=== PATIENT | male | born 1990 | race Caucasian/White ===

== ENCOUNTER 2018-02-26 20:47 | Emergency (ER) | payer SELFPAY ==
[~2018-02-26] VITALS: Ht 182.9 cm; Wt 104.3 kg
[~2018-02-26 20:47] MED LIST: CEPHALEXIN500 MG PO; NORCO 5-325 TA1 EACH PO
== END 2018-02-27 01:53 | disposition home or self-care (01) ==
LOC: ED 20:47
DX: R11.2 Nausea with vomiting, unspecified (principal); F12.99 Cannabis use, unspecified with unspecified cannabis-induced disorder; Z88.0 Allergy status to penicillin
CPT/HCPCS: 74177; 80053; 81001; 83690; 85025; 87081; 87880; 96361; 96372; 96374; 96376; 99284; J2405; J3486; J7030; Q9967

== ENCOUNTER 2021-04-15 16:39 | Emergency (ER) | payer OTHER ==
[~2021-04-15] VITALS: Ht 182.9 cm; Wt 108.9 kg
[2021-04-15] MEDS ORDERED: PROMETHAZINE HC25 M1 PO (19:47)
[2021-04-15] MEDS ORDERED: ONDANSETRON ODT8 MG PO (19:47)
== END 2021-04-15 20:13 | disposition home or self-care (01) ==
LOC: ED 16:39
DX: K52.9 Noninfective gastroenteritis and colitis, unspecified (principal); N17.9 Acute kidney failure, unspecified; Z88.0 Allergy status to penicillin
CPT/HCPCS: 80053; 81001; 83735; 85025; 96374; 96375; 99284-25; A9270; J1200; J1790; J2405; J7030

== ENCOUNTER 2023-11-28 17:09 | Emergency (ER) | payer OTHER ==
[~2023-11-28] VITALS: Ht 182.9 cm; Wt 106.2 kg
[~2023-11-28 17:09] MED LIST changes: +ONDANSETRON ODT8 MG PO; +PROMETHAZINE HC25 M1 PO
[2023-11-28 18:30] LABS: BILIRUBIN, URINE POSITIVE (negative); BLOOD/HGB, URINE TRACE-I (Negative); KETONE, URINE SMALL (Negative); LEUK ESTERASE, URINE NEGATIVE (negative); NITRITE, URINE NEGATIVE (negative); PH, URINE 5.5 (5-7)
[2023-11-28] MEDS ORDERED: SODIUM CHLORIDE 0.9% 500 ML IV ONE (18:30)
[2023-11-28] MEDS ORDERED: ondansetron HCL 4 MG/2 ML VIAL IV ONE (18:30)
[2023-11-28 18:36] LABS: BACTERIA, URINE NONE SEEN /hpf (negative); COLLECTION TYPE, URINE CLEAN CATCH; CRYSTALS, URINE NONE SEEN (0-1+); EPITHELIAL CELLS, URINE SQUAMOUS 1+ /lpf (0-1+); RED BLOOD CELLS, URINE 0-1 /hpf (0-5); REFLEX CULTURE, URINE No (No); WHITE BLOOD CELLS, URINE 0-1 /HPF (0-5)
[2023-11-28 18:43] LABS: HEMOGLOBIN 15.8 g/dL (12.0-18.0); MCH 26.6 (27-36)
[2023-11-28 18:45] LABS: BASOPHILS 0.2 % (0-2); HEMATOCRIT 47.1 % (35.0-50.0); LYMPHOCYTES 5.8 % (24-44); MCHC 33.4 g/dl (30-36); MCV 79.6 fl (81-99); MONOCYTES 4.8 % (0-12); NEUTROPHILS 89.2 % (39-80); PLATELET COUNT 283 K/uL (140-440); RBC 5.92 M/ul (4.3-5.7)
[2023-11-28 18:55] LABS: ALBUMIN 4.8 g/dL (3.4-5.0); ALBUMIN/GLOBULIN RATIO 0.87 (1.1-2.4); ANION GAP 21.4 (7-21); BILIRUBIN, TOTAL 0.7 ng/dL (0.2-1.0); BUN/CREATININE RATIO 11.52 (6.0-28.6); CALCIUM 10.1 mg/dL (8.5-10.1); CREATININE, SERUM 2.17 mg/dL (0.70-1.30); MAGNESIUM 2.2 mg/dL (1.8-2.4); POTASSIUM 3.4 mmol/L (3.5-5.1); PROTEIN, TOTAL 10.3 g/dL (6.4-8.2)
[2023-11-28] MEDS ORDERED: FAMOTIDINE 20 MG/ 2 ML VIAL IV ONE (19:15)
[2023-11-28] MEDS ORDERED: LACTATED RINGER'S 1,000 ML IV ONE (19:15)
[2023-11-28] MEDS ORDERED: ONDANSETRON 4 MG HOME.PACK SL ONE (19:30)
[2023-11-28] MEDS ORDERED: ONDANSETRON HCL4 MG PO (19:33)
[2023-11-28 20:37] VITALS: BP 128/72
== END 2023-11-28 20:40 | disposition home or self-care (01) ==
LOC: ED 17:09
PROVIDERS: Emergency Medicine
DX: R11.2 Nausea with vomiting, unspecified (principal); E86.0 Dehydration; Z88.0 Allergy status to penicillin
CPT/HCPCS: 36415; 80053; 81001; 83735; 85025; A9270; J2405; J7040; J7121

== ENCOUNTER 2024-09-26 14:17 | Emergency (ER) | payer OTHER ==
[~2024-09-26] VITALS: Ht 182.9 cm; Wt 101.2 kg
[~2024-09-26 14:17] MED LIST changes: +ONDANSETRON HCL4 MG PO
[2024-09-26] MEDS ORDERED: DOXYCYCLINE HY100 MG PO (17:56)
[2024-09-26] MEDS ORDERED: FLONASE ALLERG9.9 ML NAS (17:56)
[2024-09-26 18:06] VITALS: BP 136/76
== END 2024-09-26 18:05 | disposition home or self-care (01) ==
LOC: ED 14:17
DX: S00.81XA Abrasion of other part of head, initial encounter (principal); J32.9 Chronic sinusitis, unspecified; W01.0XXA Fall on same level from slipping, tripping and stumbling without subsequent striking against object, initial encounter
CPT/HCPCS: 70450; 99284-25